=== PATIENT | female | born 1970 | race Caucasian/White ===

== ENCOUNTER → 2017-10-07 11:50 | Outpatient (CLI) | payer OTHER, SELFPAY ==
[2017-10-07 12:55] LABS: Estradiol 27.1 pg/mL
[2017-10-08 08:38] LABS: Progesterone Level 4.57 ng/mL (See Comment)
== END ==
PROVIDERS: Visit Provider Obstetrics & Gynecology
DX: N95.1 Menopausal and female climacteric states (principal)
CPT/HCPCS: 36415; 82670; 84144

== ENCOUNTER → 2018-07-05 07:02 | Outpatient (CLI) | payer OTHER, SELFPAY ==
--- NOTE | 2018-07-05 07:06 | BI_ITS ---
MAMMOGRAPHY - BILATERAL SCREENING REASON FOR EXAM: Female, 48 years old. Routine annual screening examination. PERTINENT HISTORY: Non-contributory. TECHNIQUE: Digital bilateral breast laci (3D mammographic acquisition) in the CC and MLO projections. 2-D mediolateral oblique (MLO) and craniocaudad (CC) views of both breasts were obtained. CAD: Full Field Digital Mammography with Computer Added Detection was performed. COMPARISON: Comparison is made with prior study dated August 13, 2016 and August 08, 2015. FINDINGS: Breast Composition: There are scattered areas of fibroglandular density. There are no dominant masses or suspicious calcifications. Stable benign-appearing bilateral axillary lymph nodes. No other significant abnormalities are identified. There has been no significant change since the prior study. BI/SCREENING MAMM (CAD), BILAT IMPRESSION: Stable bilateral screening mammogram. Yearly follow-up mammogram recommended. (A) ASSESSMENT CATEGORY: BIRADS Category 2: Benign. A letter regarding these results will be sent to the patient by the facility within 30 days. Approximately 10% of breast cancers are not detected by mammography. A normal mammogram should not delay biopsy of a clinically suspicious abnormality. [id number] Electronically Signed: Matthew Anand MD at 8:44 EDT Tel [phone], Service support ,
== END ==
PROVIDERS: Visit Provider Obstetrics & Gynecology
DX: Z12.31 Encounter for screening mammogram for malignant neoplasm of breast (principal)
CPT/HCPCS: 77063; 77067

== ENCOUNTER → 2018-09-15 11:23 | Outpatient (CLI) | payer OTHER, SELFPAY ==
[2018-09-16 20:11] LABS: HPV Reflexed? NOT INDICATED
== END ==
PROVIDERS: Visit Provider Obstetrics & Gynecology
DX: Z12.4 Encounter for screening for malignant neoplasm of cervix (principal)
CPT/HCPCS: 88175; G0145

== ENCOUNTER → 2019-08-01 07:00 | Outpatient (CLI) | payer OTHER, SELFPAY ==
--- NOTE | 2019-08-01 06:59 | BI_ITS ---
MAMMOGRAPHY - BILATERAL SCREENING 3-D TOMOSYNTHESIS REASON FOR EXAM: Female, 49 years old. Routine annual screening examination. PERTINENT HISTORY: No significant family history. TECHNIQUE: 2-D mammograms and 3-D Tomosynthesis of the breast (s) were performed. CAD was performed. COMPARISON: July 05, 2018, August 13, 2015 FINDINGS: The breast composition is almost entirely fat. Scattered benign calcifications are seen. No dense spiculated masses or suspicious microcalcifications are identified. No architectural distortion is identified. There is no skin thickening or retraction. Stable lymph nodes in both axillae. There has been no significant change since the prior study. BI/SCREEN MAMM (CAD) W/ANN BILAT IMPRESSION: No mammographic signs of malignancy. Routine yearly mammograms recommended. ASSESSMENT CATEGORY: BIRADS Category 2: Benign. A letter regarding these results will be sent to the patient by the facility within 30 days. FOLLOW UP RECOMMENDATION: Yearly follow up mammogram recommended. (A) Approximately 10% of breast cancers are not detected by mammography. A normal mammogram should not delay biopsy of a clinically suspicious abnormality. Electronically Signed: Zenon Russell MD at 18:00 EST , Service support ,
== END ==
PROVIDERS: Referring Provider Obstetrics & Gynecology; Visit Provider Obstetrics & Gynecology
DX: Z12.31 Encounter for screening mammogram for malignant neoplasm of breast (principal)
CPT/HCPCS: 77063; 77067

== ENCOUNTER → 2020-11-19 07:13 | Outpatient (CLI) | payer OTHER, SELFPAY ==
--- NOTE | 2020-11-19 07:14 | BI_ITS ---
MAMMOGRAPHY - BILATERAL SCREENING REASON FOR EXAM: Female, 50 years old. Routine annual screening examination. PERTINENT HISTORY: Non-contributory. TECHNIQUE: Digital bilateral breast ann (3D mammographic acquisition) in the CC and MLO projections. 2-D mediolateral oblique (MLO) and craniocaudad (CC) views of both breasts were obtained. CAD: Full Field Digital Mammography with Computer Added Detection was performed. COMPARISON: Comparison is made with prior study dated 08/01/2019 and 07/05/2018. FINDINGS: Breast Composition: The breasts are almost entirely fatty. New 5.6 mm x 5.6 mm slightly ill-defined nodule in the deep upper slightly medial portion of the right breast. Correlation with ultrasound is recommended. No other significant abnormalities are identified. BI/SCRN MAMM (CAD)W/ANN BILAT IMPRESSION: New 5.6 mm x 5.6 mm slightly ill-defined nodule in the deep upper slightly medial portion of the right breast as described. Correlation with ultrasound is recommended. ASSESSMENT CATEGORY: BIRADS Category 0: Incomplete. Need additional imaging evaluation. A letter regarding these results will be sent to the patient by the facility within 30 days. Approximately 10% of breast cancers are not detected by mammography. A normal mammogram should not delay biopsy of a clinically suspicious abnormality. [id number] Electronically Signed: Matthew Anand MD at 8:51 EDT , Service support ,
== END ==
PROVIDERS: PCP Internal Medicine; Referring Provider Student in an Organized Health Care Education/Training Program; Visit Provider Student in an Organized Health Care Education/Training Program
DX: Z12.31 Encounter for screening mammogram for malignant neoplasm of breast (principal)
CPT/HCPCS: 77063; 77067

== ENCOUNTER → 2020-11-21 10:56 | Outpatient (CLI) | payer OTHER, SELFPAY ==
--- NOTE | 2020-11-21 10:57 | US_ITS ---
STUDY: ULTRASOUND BREAST - RIGHT REASON FOR EXAM: Female, 50 years old. Abnormal screening mammogram. TECHNIQUE: Axial and longitudinal images of the RIGHT breast were performed with a high resolution ultrasound transducer. # OF IMAGES: 39 COMPARISON: Comparison is made with prior mammogram dated 11/19/2020. FINDINGS: RIGHT Breast: Incidental note is made of a 4 mm x 4 mm x 3 mm cyst at the 12 o''clock position of the breast at site of some nipple. The questioned area seen on the mammogram is not visualized sonographically. Additional mammographic views will be obtained. US/Breast Limited Unilateral IMPRESSION: Incidental note is made of a 4 mm x 4 mm x 3 mm cyst at the 12 o''clock position of the breast at 2 position of the nipple. Additional mammographic views will be obtained. ASSESSMENT CATEGORY: BIRADS Category 0: Incomplete. Need additional imaging evaluation. A letter regarding these results will be sent to the patient by the facility within 30 days. Electronically Signed: Matthew Anand MD at 13:03 EDT , Service support ,
--- NOTE | 2020-11-21 11:43 | BI_ITS ---
MAMMOGRAPHY - UNILATERAL DIAGNOSTIC: RIGHT BREAST REASON FOR EXAM: Female, 50 years old. Abnormal screening mammogram. PERTINENT HISTORY: Non-contributory. TECHNIQUE: Compression spot views in the mediolateral oblique projection as well as 90 degree lateral view were obtained. CAD: Full Field Digital Mammography with Computer Added Detection was performed. COMPARISON: Comparison is made with prior examination dated 11/19/2020. FINDINGS: Breast Composition: There are scattered areas of fibroglandular density. Persistent 5.4 mm x 5.5 mm density seen in the medial aspect of the breast on the medial aspect. This is not well seen on the MLO view although it might be in the upper aspect of the breast. Tiny calcifications are seen. A biopsy is recommended. No other significant abnormalities are identified. BI/DIAG MAMM W/CAD, UNILAT IMPRESSION: Persistent nodular density with possible calcifications in the right breast as described. Biopsy is recommended. ASSESSMENT CATEGORY: BIRADS Category 4: Suspicious - Biopsy Should Be Considered. A letter regarding these results will be sent to the patient by the facility within 30 days. Approximately 10% of breast cancers are not detected by mammography. A normal mammogram should not delay biopsy of a clinically suspicious abnormality. Electronically Signed: Matthew Anand MD at 12:52 EDT , Service support ,
== END ==
PROVIDERS: PCP Internal Medicine; Referring Provider Student in an Organized Health Care Education/Training Program; Visit Provider Student in an Organized Health Care Education/Training Program
DX: N60.01 Solitary cyst of right breast (principal)
CPT/HCPCS: 76642; 77065

== ENCOUNTER → 2020-11-28 12:11 | Outpatient (CLI) | payer OTHER, SELFPAY ==
[2020-11-27 09:44] VITALS: BMI 38.0
--- NOTE | 2020-11-28 12:04 | PCM.HP.BLA ---
Problem List (1) Abnormal mammogram of right breast Status: Acute History and Physical Date of Admission: 11/28/20 Intake Visit Reasons: BIRADS 4 RIGHT BREAST Chief Complaint: lap robotic hysterectomy, cystoscopy Allergies No Known Allergies Allergy (Verified 11/27/20 09:44) Medications Calcium Carb/Vitamin D [Os-Antonio 500MG + D] 1 tablet PO DAILY@0800 07/10/14 [History Confirmed 11/27/20] Multivitamins,Ther W-Minerals [Multivitamin With Minerals ([facility])] 1 tablet PO DAILY 07/10/14 [History Confirmed 11/27/20] Ibuprofen [Motrin] 800 mg PO TID PRN PRN #60 tablet 07/17/14 [Rx] vitamin B complex 1 tablet PO DAILY 11/27/20 [History Confirmed 11/27/20] [facility] Medical History (Updated 11/27/20 @ 10:[address] Costa Palencia MD) Abnormal mammogram of right breast (Acute) Breast microcalcifications (Acute) Surgical History (Updated 11/27/20 @ 09:43 by Jana Dennis) S/P appendectomy (Acute) S/P hysterectomy (Acute) Family History (Updated 11/27/20 @ 09:44 by Jana Dennis) Grandmother Heart disease Social History (Updated 11/27/20 @ 10:[address] Costa Palencia MD) Smoking Status: Former smoker HPI HPI HPI: MEDINA LUNA, is a 50 F who presents to the office today for surgical consultation regarding an abnormal right mammogram. The patient is referred by Dr. Whitney Mcgrath and a written copy of my surgical consult and recommendations will return to her. 50-year-old female. G3, . Menarche age 10. First child born when she was 23. No previous breast biopsies. She did not breast-feed. She is only been on a vaginal topical estrogen medication for a month. I have asked her to hold that. There is no family history of breast cancer. She herself has not been able to palpate a breast mass. There is been no nipple discharge or bleeding. Her medical health is otherwise good. 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 November 21, 2020 [facility] Services [address] [place] [address] Breast Limited Unilateral MR#: [id number] Name: MEDINA LUNA [facility] #:[id number] : 1970 50 From: Matthew Anand MD PCP:Dr. Latanya Temple DO Status:REG CLI Study:Breast Limited Unilateral Date of Exam:11/21/20 Exam#[id number] Ordering Dr: Whitney Mcgrath DO STUDY: ULTRASOUND BREAST - RIGHT REASON FOR EXAM: Female, 50 years old. Abnormal screening mammogram. TECHNIQUE: Axial and longitudinal images of the RIGHT breast were performed with a high resolution ultrasound transducer. # OF IMAGES: 39 COMPARISON: Comparison is made with prior mammogram dated 11/19/2020. FINDINGS: RIGHT Breast: Incidental note is made of a 4 mm x 4 mm x 3 mm cyst at the 12 o''clock position of the breast at site of some nipple. The questioned area seen on the mammogram is not visualized sonographically. Additional mammographic views will be obtained. US/Breast Limited Unilateral IMPRESSION: Incidental note is made of a 4 mm x 4 mm x 3 mm cyst at the 12 o''clock position of the breast at 2 position of the nipple. Additional mammographic views will be obtained. ASSESSMENT CATEGORY: BIRADS Category 0: Incomplete. Need additional imaging evaluation. A letter regarding these results will be sent to the patient by the facility within 30 days. Electronically Signed: Matthew Anand MD at 13:03 EDT , Service support , November 21, 2020 [facility] Imaging Services [address] [place] [address] DIAG MAMM W/CAD, UNILAT MR#: [id number] Name: MEDINA LUNA [facility] #:[id number] : 1970F 50 From: Matthew Anand MD PCP:Dr. Latanya Temple, DO Status:REG CLI Study:DIAG MAMM W/CAD, UNILAT Date of Exam:11/21/20 Exam#[id number] Ordering Dr: Whitney Mcgrath DO MAMMOGRAPHY - UNILATERAL DIAGNOSTIC: RIGHT BREAST REASON FOR EXAM: Female, 50 years old. Abnormal screening mammogram. PERTINENT HISTORY: Non-contributory. TECHNIQUE: Compression spot views in the mediolateral oblique projection as well as 90 degree lateral view were obtained. CAD: Full Field Digital Mammography with Computer Added Detection was performed. COMPARISON: Comparison is made with prior examination dated 11/19/2020. FINDINGS: Breast Composition: There are scattered areas of fibroglandular density. Persistent 5.4 mm x 5.5 mm density seen in the medial aspect of the breast on the medial aspect. This is not well seen on the MLO view although it might be in the upper aspect of the breast. Tiny calcifications are seen. A biopsy is recommended. No other significant abnormalities are identified. BI/DIAG MAMM W/CAD, UNILAT IMPRESSION: Persistent nodular density with possible calcifications in the right breast as described. Biopsy is recommended. ASSESSMENT CATEGORY: BIRADS Category 4: Suspicious - Biopsy Should Be Considered. A letter regarding these results will be sent to the patient by the facility within 30 days. Approximately 10% of breast cancers are not detected by mammography. A normal mammogram should not delay biopsy of a clinically suspicious abnormality. Electronically Signed: Matthew Anand MD at 12:52 EDT , Service support , November 19, 2020 Mammogram Computer Aided Screening [facility] Imaging Services [address] [place] [address] SCRN MAMM (CAD)W/ANN BILAT MR#: [id number] Name: MEDINA LUNA ARe #:[id number] : 1970F 50 From: Matthew Anand MD PCP:Dr. Latanya Temple, DO Status:[facility] CLI Study:SCRN MAMM (CAD)W/ANN BILAT Date of Exam:11/19/20 Exam#[id number] Ordering Dr: Whitney Mcgrath DO MAMMOGRAPHY - BILATERAL SCREENING REASON FOR EXAM: Female, 50 years old. Routine annual screening examination. PERTINENT HISTORY: Non-contributory. TECHNIQUE: Digital bilateral breast ann (3D mammographic acquisition) in the CC and MLO projections. 2-D mediolateral oblique (MLO) and craniocaudad (CC) views of both breasts were obtained. CAD: Full Field Digital Mammography with Computer Added Detection was performed. COMPARISON: Comparison is made with prior study dated 08/01/2019 and 07/05/2018. FINDINGS: Breast Composition: The breasts are almost entirely fatty. New 5.6 mm x 5.6 mm slightly ill-defined nodule in the deep upper slightly medial portion of the right breast. Correlation with ultrasound is recommended. No other significant abnormalities are identified. BI/SCRN MAMM (CAD)W/ANN BILAT IMPRESSION: New 5.6 mm x 5.6 mm slightly ill-defined nodule in the deep upper slightly medial portion of the right breast as described. Correlation with ultrasound is recommended. ASSESSMENT CATEGORY: BIRADS Category 0: Incomplete. Need additional imaging evaluation. A letter regarding these results will be sent to the patient by the facility within 30 days. Approximately 10% of breast cancers are not detected by mammography. A normal mammogram should not delay biopsy of a clinically suspicious abnormality. [id number] Electronically Signed: Matthew Anand MD at 8:51 EDT , Service support , HPI HPI HPI: MEDINA LUNA, is a 50 F who presents to the office today for Exam Const General: cooperative, healthy appearing, comfortable, no acute distress Orientation: alert, awake HENMT Head: normal to inspection Chest Breast inspection: normal inspection of the breasts Breast Palpation: Yes normal palpation of the breasts, Yes normal palpation of the axillae, Yes no axillary lymphadenopathy, Yes supraclavicular (Normal) Other: No bilateral nipple discharge Resp Effort & Inspection: normal respiratory effort Auscultation: clear to auscultation bilaterally Cardio Rate: regular rate Rhythm: regular rhythm Assessment & Plan Problems 1. Abnormal mammogram of right breast R92.8 Plan 50-year-old female with an abnormal screening mammogram with a density upper mid right breast. This is only seen on the cc view. BI-RADS Category 4. I recommend to her stereotactic needle core biopsy as the area is not seen on ultrasound. I described technique, benefit, risk, alternatives. She has had an opportunity to ask and have questions answered. We will schedule and expedite her care. I appreciate the opportunity of assisting with surgical care Copy: Dr. Whitney Mcgrath and Dr. Latanya Palencia M.D., F.A.C.S. Coding Level of Care Code Off vis,new,level 2 Diagnoses Abnormal mammogram of right breast R92.8 I have re-examined the patient. There are no clinical changes since date of exam. Procedure Criteria Procedure Type: Elective COVID Risk Discussion: The surgeon/proceduralist and patient have discussed in detail the risk of exposure to and/or potential harm posed by the COVID-19 virus with having a surgery/procedure at this time versus the risk of delaying the surgery/procedure. It is not possible to know either the risk of delaying the surgery or procedure or chance of getting an infection with perfect accuracy, but a joint decision was made between the patient and the surgeon/proceduralist to proceed at this time with the scheduled surgery/procedure as indicated on the consent form.
--- NOTE | 2020-11-28 12:40 | BRBX_PTH ---
PATIENT: MEDINA LUNA LOC: [facility] U#:[id number] AGE/SX: 55/F ROOM: RE11/28/[address]: Dr. Costa Palencia MD : 1970 BED: DIS: SPEC #: [id number] RECD: 11/28/20 13:34 STATUS: FABRICIO REJimmy #: [id number] CAMELIA: 11/28/20 12:[address]: Costa Palencia DEPT: SURGICAL PATHOLOGY RECD BY: Evelin Gates ENTERED: 11/29/20 06:26 SP TYPE: BREAST BX OTHR DR: Dr. Latanya Temple, DO Tissues: Breast, NOS Procedures: Surgery Specimen Level IV HEADER OPERATION: Right breast stereotactic biopsy PRE-OP DIAGNOSIS: Density upper mid right breast TISSUE SUBMITTED: Right breast core tissue ISCHEMIC TIME: 1 minute FIXATION TIME: 79 hours MICROSCOPIC DIAGNOSIS Density upper mid right breast, stereotactic core biopsy: Fragments of fibroadipose tissue with focal fat necrosis and chronic inflammation. Negative for atypia or malignancy. See comment. SAIMA:donna 12/02/2020 COMMENT Correlation with clinical, radiologic findings and appropriate follow up are necessary. Case has been reviewed in consultation with Dr. Mcknight who concurs with the above diagnosis. IDC:AM MICROSCOPIC DESCRIPTION Slides are reviewed. GROSS DESCRIPTION Received in fixative is one container labeled with the patient name and designated right breast. The specimen consists of multiple elongated fragments of greenberg-yellow fibroadipose tissue that in aggregate measure 5 x 3 x 0.3 cm. The entire specimen is submitted in two cassettes. / SAIMA:donna 11/29/20 TC:3 CPT: 38740
== END ==
PROVIDERS: PCP Internal Medicine; Referring Provider Surgery; Visit Provider Surgery
DX: N60.01 Solitary cyst of right breast (principal); Z79.1 Long term (current) use of non-steroidal anti-inflammatories (NSAID); Z87.891 Personal history of nicotine dependence; Z90.710 Acquired absence of both cervix and uterus; N64.1 Fat necrosis of breast
CPT/HCPCS: 19081; 88305; J7050

== ENCOUNTER → 2021-05-26 08:53 | Outpatient (CLI) | payer OTHER, SELFPAY ==
--- NOTE | 2021-05-26 08:56 | BI_ITS ---
MAMMOGRAPHY - UNILATERAL DIAGNOSTIC: RIGHT BREAST REASON FOR EXAM: Female, 51 years old. Six-month follow-up examination following right breast biopsy. PERTINENT HISTORY: Non-contributory. TECHNIQUE: Digital unilateral breast laci (3D mammographic acquisition) in the CC and MLO projections. 2-D mediolateral oblique (MLO) and craniocaudad (CC) views of both breasts were obtained. CAD: Full Field Digital Mammography with Computer Added Detection was performed. COMPARISON: Comparison is made with prior examination dated 11/19/2020 and 11/21/2020. FINDINGS: Breast Composition: There are scattered areas of fibroglandular density. There are no dominant masses or suspicious calcifications. A tissue clip marker seen within a tiny nodule in the deep upper medial aspect of the right breast. The nodular density as decreased further in size as compared to prior study. No other significant abnormalities are identified. BI/DIAG MAMM W/CAD, UNILAT IMPRESSION: Stable unilateral diagnostic mammogram. One year follow-up mammogram recommended. (A) ASSESSMENT CATEGORY: BIRADS Category 2: Benign. A letter regarding these results will be sent to the patient by the facility within 30 days. Approximately 10% of breast cancers are not detected by mammography. A normal mammogram should not delay biopsy of a clinically suspicious abnormality. Electronically Signed: Matthew Anand MD at 10:19 EDT , Service support ,
== END ==
PROVIDERS: PCP Internal Medicine; Referring Provider Surgery; Visit Provider Surgery
DX: R92.8 Other abnormal and inconclusive findings on diagnostic imaging of breast (principal)
CPT/HCPCS: 77061; 77065; G0279

== ENCOUNTER → 2022-03-04 | Outpatient (CLI) | payer OTHER, SELFPAY ==
--- NOTE | 2022-03-04 07:15 | BI_ITS ---
MAMMOGRAPHY - BILATERAL SCREENING REASON FOR EXAM: Female, 51 years old. Routine annual screening examination. PERTINENT HISTORY: Non-contributory. History of prior right stereotactic breast biopsy. TECHNIQUE: Digital bilateral breast ann (3D mammographic acquisition) in the CC and MLO projections. 2-D mediolateral oblique (MLO) and craniocaudad (CC) views of both breasts were obtained. CAD: Full Field Digital Mammography with Computer Added Detection was performed. COMPARISON: Comparison is made with prior study dated 05/26/2021 and 11/21/2020. FINDINGS: Breast Composition: There are scattered areas of fibroglandular density. There are no dominant masses or suspicious calcifications. A tissue clip marker is seen within the tiny nodular density in the deep upper medial aspect of the right breast this is unchanged. Stable benign appearing axillary lymph nodes. No other significant abnormalities are identified. There has been no significant change since the prior study. BI/SCRN MAMM (CAD)W/ANN BILAT IMPRESSION: Stable bilateral screening mammogram. Yearly follow-up mammogram recommended. (A) ASSESSMENT CATEGORY: BIRADS Category 2: Benign. A letter regarding these results will be sent to the patient by the facility within 30 days. Approximately 10% of breast cancers are not detected by mammography. A normal mammogram should not delay biopsy of a clinically suspicious abnormality. [id number] Electronically Signed: Matthew Anand MD at 8:42 EDT ,
== END | disposition home or self-care (01) ==
LOC: OPBI 07:13
PROVIDERS: PCP Internal Medicine; Visit Provider Student in an Organized Health Care Education/Training Program
DX: Z12.31 Encounter for screening mammogram for malignant neoplasm of breast (principal)
CPT/HCPCS: 77063; 77067

== ENCOUNTER → 2023-04-08 | Outpatient (CLI) | payer OTHER, SELFPAY ==
--- NOTE | 2023-04-08 08:22 | BI_ITS ---
MAMMOGRAPHY - BILATERAL SCREENING REASON FOR EXAM: Female, 53 years old. Routine annual screening examination. PERTINENT HISTORY: Non-contributory. Prior right stereotactic breast biopsy. TECHNIQUE: Digital bilateral breast ann (3D mammographic acquisition) in the CC and MLO projections. 2-D mediolateral oblique (MLO) and craniocaudad (CC) views of both breasts were obtained. CAD: Full Field Digital Mammography with Computer Added Detection was performed. COMPARISON: Comparison is made with prior study dated March 04, 2022 and May 26, 2021. FINDINGS: Breast Composition: There are scattered areas of fibroglandular density. There are no dominant masses or suspicious calcifications. A tissue clip marker is once again seen in the tiny nodule in the deep upper medial aspect of the right breast. Stable benign-appearing left axillary lymph nodes. No other significant abnormalities are identified. There has been no significant change since the prior study. BI/SCRN MAMM (CAD)W/ANN BILAT IMPRESSION: Stable bilateral screening mammogram. Yearly follow-up mammogram recommended. (A) ASSESSMENT CATEGORY: BIRADS Category 2: Benign. A letter regarding these results will be sent to the patient by the facility within 30 days. Approximately 10% of breast cancers are not detected by mammography. A normal mammogram should not delay biopsy of a clinically suspicious abnormality. [id number] Electronically Signed: Matthew Anand MD at 10:00 EDT ,
== END | disposition home or self-care (01) ==
LOC: OPBI 08:20
PROVIDERS: PCP Internal Medicine; Referring Provider Nurse Practitioner Women's Health; Visit Provider Nurse Practitioner Women's Health
DX: Z12.31 Encounter for screening mammogram for malignant neoplasm of breast (principal)
CPT/HCPCS: 77063; 77067

== ENCOUNTER → 2023-06-11 | Outpatient (CLI) | payer OTHER, SELFPAY ==
[2023-06-11 12:20] LABS: ALB/GLOB Ratio 0.9 RATIO (0.9-2.4); AST(SGOT) 24 U/L (15-37); Alanine Aminotransfer ALT/SGPT 37 U/L (13-56); Albumin, Serum 3.5 g/dL (3.2-5.0); Alkaline Phosphatase 101 U/L (45-117); Anion Gap 4 (5-15); BUN 12 mg/dL (7-18); BUN/Creat Ratio 14.5 RATIO (10-20); Calcium,Total 8.6 mg/dL (8.5-10.1); Chloride 109 mmol/L (98-107); Cholesterol 190 mg/dL (200); Creatinine, Serum 0.83 mg/dL (0.55-1.02); EST Glomerular Filtration Rate 77 mL/min (>60); Est Glom Filt Rate - Afr Amer 93 mL/min (>60); Globulin 3.9 g/dL (2.2-4.2); Glucose 94 mg/dL (74-106); High Density Lipoprotein 45 mg/dL; Protein, Total 7.4 g/dL (6.4-8.2); Sodium Level 141 mmol/L (136-145); Thyroid Stim Hormone (TSH) 2.08 uIU/mL (0.358-3.74); Triglycerides 145 mg/dL; Very Low Density Lipoprotein 29 mg/dL (5-40)
== END | disposition home or self-care (01) ==
LOC: LAB 11:25
PROVIDERS: PCP Internal Medicine; Referring Provider Internal Medicine; Visit Provider Internal Medicine
DX: Z13.220 Encounter for screening for lipoid disorders (principal); Z13.29 Encounter for screening for other suspected endocrine disorder; Z00.00 Encounter for general adult medical examination without abnormal findings
CPT/HCPCS: 36415; 80053; 80061; 84443

== ENCOUNTER → 2024-05-12 | Outpatient (CLI) | payer OTHER, SELFPAY ==
--- NOTE | 2024-05-12 12:51 | BI_ITS ---
MAMMOGRAPHY - BILATERAL SCREENING REASON FOR EXAM: Female, 54 years old. Routine annual screening examination. PERTINENT HISTORY: Non-contributory. TECHNIQUE: Digital bilateral breast ann (3D mammographic acquisition) in the CC and MLO projections. 2-D mediolateral oblique (MLO) and craniocaudad (CC) views of both breasts were obtained. CAD: Full Field Digital Mammography with Computer Added Detection was performed. COMPARISON: Comparison is made with prior study April 08, 2023 and March 04, 2022. FINDINGS: Breast Composition: There are scattered areas of fibroglandular density. There are no dominant masses or suspicious calcifications. A tissue clip marker is once again seen in the tiny nodule in the deep upper medial aspect of the right breast. No other significant abnormalities are identified. There has been no significant change since the prior study. BI/SCRN MAMM (CAD)W/ANN BILAT IMPRESSION: Stable bilateral screening mammogram. Yearly follow-up mammogram recommended. (A) ASSESSMENT CATEGORY: BIRADS Category 2: Benign. A letter regarding these results will be sent to the patient by the facility within 30 days. Approximately 10% of breast cancers are not detected by mammography. A normal mammogram should not delay biopsy of a clinically suspicious abnormality. [id number] Electronically Signed: Matthew Anand MD at 13:45 EDT ,
[2024-05-12 13:44] LABS: Absolute Lymphocyte Count 2.12 X10^3/uL (0.83-4.51); Basophil# 0.02 X10^3/uL; Basophil% 0.3 % (0-1); Eosinophil# 0.09 X10^3/uL; Eosinophils% 1.2 % (0-5); Hemoglobin 13.9 g/dL (12.0-15.0); Lymphocyte # 2.12 X10^3/ul (0.83-4.51); Lymphocyte % 27.8 % (19-41); Mean Corp Hgb Conc 33.1 g/dL (32-36); Mean Corpuscular Hgb 28.6 pg (27.0-32.0); Mean Corpuscular Volume 86.4 fL (81-99); Mean Platelet Vol. 10.1 fl (6.2-12.0); Monocyte# 0.41 X10^3/uL; Monocyte% 5.4 % (0-10); NRBC Flagged by Analyzer 0 % (0-5); Neutrophil # 4.95 X10^3/uL (2.7-7.7); Neutrophil % 64.9 % (47-70); Platelet Count 254 K/mm3 (150-450); RBC Distribution Width CV 12.7 % (11.6-14.6); Red Blood Count 4.86 M/mm3 (4.2-5.4); White Blood Count 7.6 K/mm3 (4.4-11.0)
[2024-05-12 14:10] LABS: Vitamin B12 550 pg/mL (211-911)
[2024-05-12 14:27] LABS: ALB/GLOB Ratio 0.9 RATIO (0.9-2.4); AST(SGOT) 30 U/L (15-37); Alanine Aminotransfer ALT/SGPT 41 U/L (13-56); Albumin, Serum 3.7 g/dL (3.2-5.0); Alkaline Phosphatase 107 U/L (45-117); Anion Gap 9 (5-15); BUN 12 mg/dL (7-18); BUN/Creat Ratio 12.9 RATIO (10-20); Calcium,Total 9.7 mg/dL (8.5-10.1); Chloride 101 mmol/L (98-107); Cholesterol 224 mg/dL (200); Creatinine, Serum 0.93 mg/dL (0.55-1.02); EST Glomerular Filtration Rate 67 mL/min (>60); Est Glom Filt Rate - Afr Amer 81 mL/min (>60); Glucose 91 mg/dL (74-106); High Density Lipoprotein 50 mg/dL; Potassium 3.6 mmol/L (3.5-5.1); Protein, Total 7.7 g/dL (6.4-8.2); Sodium Level 136 mmol/L (136-145); T4 Free Direct 0.92 ng/dL (0.76-1.46); Triglycerides 133 mg/dL; Very Low Density Lipoprotein 27 mg/dL (5-40)
== END | disposition home or self-care (01) ==
PROVIDERS: PCP Internal Medicine; Referring Provider Nurse Practitioner Women's Health; Visit Provider Nurse Practitioner Women's Health
DX: Z00.00 Encounter for general adult medical examination without abnormal findings (principal); Z12.31 Encounter for screening mammogram for malignant neoplasm of breast
CPT/HCPCS: 36415; 77063; 77067; 80053; 80061; 82607; 84439; 84443; 85025

== ENCOUNTER → 2025-05-18 | Outpatient (CLI) | payer OTHER, SELFPAY ==
--- NOTE | 2025-05-18 15:00 | BI_ITS ---
EXAM: SCRN MAMM (CAD)W/ANN BILAT DATE: 05/18/2025 CLINICAL HISTORY: F, Age 55 y/o , SCREENING FOR BREAST CANCER No family history. TECHNIQUE: Procedure Code: [id number] Modality: MG Procedure: SCRN MAMM (CAD)W/ANN BILAT COMPARISON: Prior exam(s) dated May 12, 2024. FINDINGS: TISSUE DENSITY: There are scattered areas of fibroglandular density. Bilateral Breast Mammographic Findings: No significant masses, calcifications or other abnormalities are identified. A tissue clip marker is seen within a tiny nodule in the deep upper medial aspect of the right breast. Stable 2 mm nodular density in the anterior central portion of the right breast suggestive of a small cyst. No suspicious masses, areas of developing architectural distortion, or suspicious calcifications. There has been no significant interval change. BI/SCRN MAMM (CAD)W/ANN BILAT IMPRESSION: Stable screening bilateral mammogram. OVERALL FINAL ASSESSMENT BI-RADS 2: BENIGN RECOMMENDATION: Routine annual follow-up in 1 Year A letter with findings and recommendations will be mailed to the patient. Reading Location: [place] [id number]
== END | disposition home or self-care (01) ==
PROVIDERS: PCP Internal Medicine; Referring Provider Nurse Practitioner Women's Health; Visit Provider Nurse Practitioner Women's Health
DX: Z12.31 Encounter for screening mammogram for malignant neoplasm of breast (principal)
CPT/HCPCS: 77063; 77067

== ENCOUNTER → 2025-06-16 | Outpatient (CLI) | payer OTHER, SELFPAY ==
[2025-06-16 09:08] LABS: Hematocrit 39.6 % (37-47); Hemoglobin 13.3 g/dL (12.0-15.0); Immature Granulocytes Count 0.010 X10^3/uL (0.0-0.0); Mean Corp Hgb Conc 33.6 g/dL (32-36); Mean Corpuscular Volume 87.6 fL (81-99); Mean Platelet Vol. 10.1 fl (6.2-12.0); NRBC Flagged by Analyzer 0 % (0-5); Platelet Count 239 K/mm3 (150-450); RBC Distribution Width CV 13.1 % (11.6-14.6); RBC Distribution Width SD 41.6 fl (35.1-43.9); Red Blood Count 4.52 M/mm3 (4.2-5.4); White Blood Count 6.1 K/mm3 (4.4-11.0)
[2025-06-16 09:41] LABS: AST(SGOT) 24 U/L (<=31); Alanine Aminotransfer ALT/SGPT 17 U/L (<=34); Albumin, Serum 4.2 g/dL (3.5-5.0); Alkaline Phosphatase 70 U/L (35-104); Anion Gap 10 (5-15); BUN 10 mg/dL (4-19); BUN/Creat Ratio 11.4 RATIO (10-20); Calcium,Total 9.2 mg/dL (7.6-11.0); Carbon Dioxide 24.7 mmol/L (21.0-32.0); Chloride 105 mmol/L (98-108); Globulin 2.8 g/dL (2.2-4.2); Glucose 85 mg/dL (70-99); Potassium 3.9 mmol/L (3.3-5.1)
[2025-06-18 09:45] LABS: Cholesterol 193 mg/dL (<=200); Low Density Lipoprotein Calc. 129 mg/dL; Magnesium 2.3 mg/dL (1.5-2.2); Triglycerides 61 mg/dL; Very Low Density Lipoprotein 12 mg/dL (5-40); cholesterol:hdl ratio screen 3.70
== END | disposition home or self-care (01) ==
LOC: LAB 08:49
PROVIDERS: PCP Internal Medicine; Referring Provider Internal Medicine; Visit Provider Internal Medicine
DX: Z13.220 Encounter for screening for lipoid disorders (principal); R53.82 Chronic fatigue, unspecified
CPT/HCPCS: 36415; 80053; 80061; 83735; 84439; 84443; 85025

== ENCOUNTER → 2025-07-05 | Outpatient (CLI) | payer OTHER, SELFPAY ==
--- NOTE | 2025-07-05 15:34 | BD_ITS ---
PROCEDURE: BD/Dexa Bone Density Study
== END | disposition home or self-care (01) ==
PROVIDERS: PCP Internal Medicine; Referring Provider Internal Medicine; Visit Provider Internal Medicine
DX: Z78.0 Asymptomatic menopausal state (principal)
CPT/HCPCS: 77080